=== PATIENT | female | born 1970 ===

== ENCOUNTER 2023-06-04 08:50 | Outpatient (CLI) | payer OTHER | END 2023-06-04 08:59 | disposition home or self-care (01) | LOC: RAD 08:50 | DX: R07.89 Other chest pain (principal) ==

== ENCOUNTER 2023-09-05 12:36 | Outpatient (CLI) | payer OTHER | END 2023-09-05 12:45 | disposition home or self-care (01) | LOC: RAD 12:36 | DX: M99.01 Segmental and somatic dysfunction of cervical region (principal); M99.02 Segmental and somatic dysfunction of thoracic region; M99.03 Segmental and somatic dysfunction of lumbar region; M99.04 Segmental and somatic dysfunction of sacral region; M99.05 Segmental and somatic dysfunction of pelvic region ==